=== PATIENT | female | born 1995 | race Caucasian/White ===

== ENCOUNTER → 2020-08-14 | Outpatient (CLI) | payer SELFPAY ==
[~2020-08-14] MED LIST: ACET1TAB55 PO; COLA100C5 PO; IBUP80TA PO; MULTTAB20 PO; OXYC-517 PO
== END ==
LOC: M LABSMTC 09:09
PROVIDERS: ATTEND Pediatrics
DX: Z20.822 Contact with and (suspected) exposure to COVID-19 (principal)

== ENCOUNTER 2020-12-09 07:08 | Inpatient (IN) | payer OTHER ==
[2020-12-09] VITALS (12 sets, daily range): BP systolic 107–156; BP diastolic 53–91
[~2020-12-09] VITALS: Ht 157.5 cm; Wt 112.9 kg
[2020-12-09] MEDS ORDERED: MULTTAB20 PO (07:28)
[2020-12-09] MEDS ORDERED: HOME MED LIST COMPLETE! XX SCH (07:30)
--- OUTSIDE RECORDS SUMMARY | 2020-12-09 08:33 | CCD | Continuity of Care Document ---
Author Author Chyna WALKER PA Organization Unknown Address [address], [place] [address] Phone [phone] Care Team Providers Care Pump And Still Operator Name Role Phone Jeni Schneider Educational Psychology Teacher AUTM [phone] Problems Active Problems Provider Date Heart murmur Jasmeet Ayala MD Onset: 06/23/2020 Social History Type Date Description Comments Sex Unknown ETOH Use Does not consume alcohol Tobacco Use Start: Unknown Patient has never smoked Smoking Status Reviewed: 06/23/20 Patient has never smoked Exercise Type/Frequency Does not exercise curren tly Exercise Limitations None Allergies, Adverse Reactions, Alerts Description No Known Drug Allergies Medications Active Medications SIG Qnty Indications Ordering Provide r Date 19 Tablets 1 by mouth every day Unknown 06/22/2020 Immunizations Description No Information Available Vital Signs Date Vital Result Comment 09/22/2020 8:04am Weight 225.00 lb Home Weight 224lb Height 62 inches 5'2" BMI (Body Mass Index) 41.1 kg/m2 BP Systolic Sitting 114 mmHg Ra, large cuff BP Diastolic Sitting 74 mmHg Ra, large cuff 06/23/2020 8:05am Weight 206.00 lb Home Weight 207lb home weight Height 62 inches 5'2" BMI (Body Mass Index) 37.7 kg/m2 Heart Rate 76 /min BP Systolic Sitting 110 mmHg Omron, large cuff/Ra BP Diastolic Sitting 66 mmHg Omron, large cuff/R a Results Test Acquired Date Facility Test Result H/L Range Note CBC without Differential 05/27/2020 [place], [place] [id number] [phone] White Blood Count 13.60 Red Blood Count 4.58 Platelets 272 Hemoglobin 12.7 Hematocrit 38.4 Procedures Date Code Description Status 09/22/2020 27757 Office/Outpatient Established Lo w MDM 20-29 Min Completed 08/26/2020 06684 Echocardiogram 2-D Doppler Color Completed 06/23/2020 92662 Office/Outpatient New Low MDM 30 -44 Minutes Completed 06/23/2020 59324 ECG 12-Lead Completed Medical Devices Description No Information Available Encounters Type Date Location Provider Dx Diagnosis Office Visit 09/22/2020 8:00a Main Office PETER Liriano R01 .1 Cardiac murmur, unspecified Office Visit 06/23/2020 8:00a Main Office Jasmeet Ayala MD R01.1 Cardiac murmur, unspecified Assessments Date Code Description Provider 09/22/2020 R01.1 Cardiac murmur, unspecified PETER Bishop 08/26/2020 R01.1 Cardiac murmur, unspecified ECHO 06/23/2020 R01.1 Cardiac murmur, unspecified [place] donta Ayala MD Plan of Treatment 09/22/2020 - PETER Liriano* R01.1 Cardiac murmur, unspecified* Recommendations:* No further evaluation is needed at this time * All * Follow up:* Follow up as needed Functional Status Functional Condition Comment Date Status Independent with all ADL's Activ e Mental Status Description No Information Available Referrals Description No Information Available
--- OUTSIDE RECORDS SUMMARY | 2020-12-09 08:34 | CCD | Continuity of Care Document ---
Author Author Chyna WALKER PA Organization Unknown Address [address], [place] [address] Phone [phone] Care Team Providers Care Traffic Engineering Director Name Role Phone Jeni Schneider Museum Preparator AUTM [phone] Problems Active Problems Provider Date Heart murmur [...] H/L Range Note CBC without Differential 05/27/2020 [place], [place] [id number] [phone] White Blood Count 13.60 Red Blood Count 4.58 Platelets 272 Hemoglobin 12.7 Hematocrit 38.4 Procedures Date Code Description Status 09/22/2020 17871 Office/Outpatient Established Lo w MDM 20-29 Min Completed 08/26/2020 56108 Echocardiogram 2-D Doppler Color Completed 06/23/2020 39665 Office/Outpatient New Low MDM 30 -44 Minutes Completed 06/23/2020 85702 ECG 12-Lead Completed Medical Devices Description No [...]
--- OUTSIDE RECORDS SUMMARY | 2020-12-09 08:34 | CCD ---
Author Author [facility] Organization [facility] Address Unknown Phone Unavailable Care Team Providers Care Director Reactor Projects Name Role Phone AARON, L LAURA PA Unavailable Unavailable AARON, L LAURA PA Unavailable Unavailable AARON, L LAURA PA Unavailable Unavailable AARON, L LAURA PA Unavailable Unavailable AARON, L LAURA PA Unavailable Unavailable AARON, L LAURA PA Unavailable Unavailable AARON, L LAURA PA Unavailable Unavailable AARON, L LAURA PA Unavailable Unavailable AARON, L LAURA PA Unavailable Unavailable AARON, L LAURA PA Unavailable Unavailable AARON, L LAURA PA Unavailable Unavailable AARON, L LAURA PA Unavailable Unavailable AARON, L LAURA PA Unavailable Unavailable AARON, L LAURA PA Unavailable Unavailable AARON, L LAURA PA Unavailable Unavailable AARON, L LAURA PA Unavailable Unavailable ANTECOL, Pau STONE MD Unavailable Unavailable ANTECOL, Pau STONE MD Unavailable Unavailable ANTECOL, Pau STONE MD Unavailable Unavailable ANTECOL, Pau STONE MD Unavailable Unavailable ANTECOLPau MD Unavailable Unavailable ANTECOL, Pau STONE MD Unavailable Unavailable ANTECOL, Pau STONE MD Unavailable Unavailable ANTECOL, Pau STONE MD Unavailable Unavailable ANTECOL, Pau STONE MD Unavailable Unavailable ANTECOL, Pau STONE MD Unavailable Unavailable ANTECOL, Pau STONE MD Unavailable Unavailable ANTECOL, Pau STONE MD Unavailable Unavailable ANTECOLPau MD Unavailable Unavailable ANTECOL, Pau STONE MD Unavailable Unavailable ANTECOL, Pau STONE MD Unavailable Unavailable ANTECOLPau MD Unavailable Unavailable ANTECOL, Pau STONE MD Unavailable Unavailable ANTECOL, Pau STONE MD Unavailable Unavailable ANTECOL, Pau STONE MD Unavailable Unavailable ANTECOL, Pau STONE MD Unavailable Unavailable ANTECOL, Pau STONE MD Unavailable Unavailable ANTECOL, Pau STONE MD Unavailable Unavailable ANTECOL, Pau STONE MD Unavailable Unavailable ANTECOL, Pau STONE MD Unavailable Unavailable ANTECOL, Pau STONE MD Unavailable Unavailable ANTECOL, Pau STONE MD Unavailable Unavailable ANTECOL, Pau STONE MD Unavailable Unavailable ANTECOL, Pau STONE MD Unavailable Unavailable ANTECOL, Pau STONE MD Unavailable Unavailable ANTECOL, Pau STONE MD Unavailable Unavailable ANTECOL, Pau STONE MD Unavailable Unavailable ANTECOL, aPu STONE MD Unavailable Unavailable ANTECOL, Pau STONE MD Unavailable Unavailable ANTECOL, Pau STONE MD Unavailable Unavailable ANTECOL, Pau STONE MD Unavailable Unavailable ANTECOL, Pau STONE MD Unavailable Unavailable ANTECOL, Pau STONE MD Unavailable Unavailable ANTECOL, Pau STONE MD Unavailable Unavailable ANTECOL, Pau STONE MD Unavailable Unavailable ANTECOL, Pau STONE MD Unavailable Unavailable ANTECOL, Pau STONE MD Unavailable Unavailable ANTECOL, Pau STONE MD Unavailable Unavailable ANTECOL, Pau STONE MD Unavailable Unavailable ANTECOL, Pau STONE MD Unavailable Unavailable ANTECOL, Pau STONE MD Unavailable Unavailable ANTECOL, Pau STONE MD Unavailable Unavailable ANTECOL, Pau STONE MD Unavailable Unavailable ANTECOL, Pau STONE MD Unavailable Unavailable ANTECOL, Pau STONE MD Unavailable Unavailable ANTECOL, Pau STONE MD Unavailable Unavailable ANTECOL, Pau STONE MD Unavailable Unavailable ANTECOL, Pau STONE MD Unavailable Unavailable ANTECOL, Pau STONE MD Unavailable Unavailable ANTECOL, Pau STONE MD Unavailable Unavailable JONESVISHNU Unavailable Unavailable Re-disclosure Warning The records that you are about to access may contain information from federally-assisted alcohol or drug abuse programs. If such information is present, then the following federally mandated warning applies: This information has been disclosed to you from records protected by federal confidentiality rules (42 CFR part 2). The federal rules prohibit you from making any further disclosure of this information unless further disclosure is expressly permitted by the written consent of the person to whom it pertains or as otherwise permitted by 42 CFR part 2. A general authorization for the release of medical or other information is NOT sufficient for this purpose. The Federal rules restrict any use of the information to criminally investigate or prosecute any alcohol or drug abuse patient.The records that you are about to access may contain highly sensitive health information, the redisclosure of which is protected by Article 27-F of the [place] State Public Health law. If you continue you may have access to information: Regarding HIV / AIDS; Provided by facilities licensed or operated by the [facility] Office of Mental Health; or Provided by the [facility] Office for People With Developmental Disabilities. If such information is present, then the following [facility] mandated warning applies: This information has been disclosed to you from confidential records which are protected by state law. State law prohibits you from making any further disclosure of this information without the specific written consent of the person to whom it pertains, or as otherwise permitted by law. Any unauthorized further disclosure in violation of state law may result in a fine or half-way sentence or both. A general authorization for the release of medical or other information is NOT sufficient authorization for further disc losure. Encounters Encounter Providers Location Date Indications Data Source(s ) Outpatient Attender: LAURA GREEN Main Office 09/22/2020 0 8:00:00 AM EDT [facility] ([facility]) Outpatient Attender: BERTHA MOULTON MD Main Office 06/23/2020 08:00:00 AM EDT [facility] ([facility]) Outpatient Attender: VISHNU JONES 06/14 06:00:00 PM EDT - 06/14/2020 07:00:00 PM EDT [facility] Patient discharged. Medications Medication Brand Name Start Date Product Form Dose Route Admi nistrative Instructions Pharmacy Instructions Status Indications Reaction Description Data Source(s) alpha-Tocopherol Acetate 30 UNT / Ascorb ic Acid 100 MG / Beta Carotene 1000 UNT / Calcium Carbonate 200 MG / Calcium Pantothenate 7 MG / Cholecalciferol 400 UNT / Docusate Sodium 25 MG / Ferrous fumarate 29 MG / Folic Acid 1 MG / Niacinamide 15 MG / Pyrid 19 06/22/2020 12:00:00 AM EDT ORAL active [facility] ([facility]) Insurance Providers Payer name Policy type / Coverage type Policy ID Covered green party ID Covered green party's relationship to yusuf Policy Yusuf Plan Information [facility] ACTIVE DUTY [id number] SP [id number] SELF PAY ONLY [id number] SP [id number] [facility] [id number] SP [id number] [facility] HUMANA - O/P [id number] Problems, Conditions, and Diagnoses Code Display Name Description Problem Type Effective Dates Data Source(s) Q24824 Pain in left ankle and joints of left fo ot Pain in left ankle and joints of left foot Diagnosis 06/14/2020 06:00:00 PM EDT [facility] J11190 Pain in right ankle and joints of right foot Pain in right ankle and joints of right foot Diagnosis 06/14/2020 06:00:00 PM EDT [facility] R01.1 Heart murmur Heart murmur Problem 06/23/2020 12:00:00 A M EDT [facility] ([facility]) Surgeries/Procedures Procedure Description Date Indications Data Source(s) OFFICE OUTPATIENT VISIT 15 MINUTES 09/22/2020 12:00:00 AM EDT [facility] ([facility]) ECHO TTHRC R-T 2D W/WOM-MODE COMPL SPEC&COLR DOP 08/26 12:00:00 AM EDT [facility] ([facility]) ECG ROUTINE ECG W/LEAST 12 LDS W/I&R 06/23/2020 12:00: 00 AM EDT [facility] ([facility]) OFFICE OUTPATIENT NEW 30 MINUTES 06/23/2020 12:00:00 A M EDT [facility] ([facility]) Results ID Date Data Source [id number] 10/15/2020 12:00:00 AM EDT [facility] Name Value Range Interpretation Code Description Data Conchita rce(s) Supporting Document(s) SARS-COV-2 Negative [facility] re [facility] ID Date Data Source [id number] 09/19/2020 02:30:00 PM EDT [facility] Name Value Range Interpretation Code Description Data Conchita rce(s) Supporting Document(s) SARS coronavirus 2 RNA [Presence] in Res piratory specimen by LATASHA with probe detection anterior nasal swabs [facility] This lab was ordered by [facility] and re ported by [employer]. ID Date Data Source [id number] 09/19/2020 10:30:00 AM EDT [facility] Name Value Range Interpretation Code Description Data Conchita rce(s) Supporting Document(s) SARS-CoV-2 NEGATIVE [facility] This lab was ordered by [facility] and reported by [facility]. ID Date Data Source [id number] 08/16/2020 01:14:00 PM EDT [facility] Name Value Range Interpretation Code Description Data Conchita rce(s) Supporting Document(s) SARS coronavirus 2 RNA Not Detected [facility] This lab was ordered by [facility] and reported by [facility]. ID Date Data Source [id number] 06/15/2020 10:18:00 AM EDT [facility] [address] [place] [address] PHONE: [phone] FAX: [phone] Name .................. : JUNIOR Flores Acct Number.................. : [id number] ROOM. ................. : Number ................... : [id number] Stay type ............. : O/P Discharge Date......... ... : 06/14/20 Admit Date ......... : 06/14/20 Admit Phys .................... : KAREN Ruiz Date of ....... : 1995 Family Phys ................... : UNKNOWN CO Phone .................. : [phone] Age ................................ : 24 Film# .................. .:[id number] Sex ................................. : F Unsigned transcriptions are preliminary reports and do not represent a medical or legal document MRI LOWER EXT ANY JT W/O CONT [id number] COMPLETE:06/14/20 18:54 KMB [id number] Reason for Exam: HEEL AND ANKLE PAIN, PT IS 14 WEEKS MRI OF THE LEFT ANKLE AND HEEL WITHOUT CONTRAST: INDICATION: Pain. FINDINGS: Multiple imaging of the left ankle submitted for evaluation. No abnormal osseous signal to indicate an acute injury. The plantar fascia is unremarkable. The Achilles tendon is unremarkable. The flexor and extensor tendons are unremarkable. The anterior and posterior talofibular ligaments are intact. No joint effusion. IMPRESSION: Unremarkable MRI of the left ankle and heel. No osseous or soft tissue abnormality. Electronically Reviewed and Signed By Haroon Cheng DO , 06/15/20 10:18, NAREN Transcribe Initials: JESUS , Transcribe Date: 06/15/20 01:48, Dictation Date: Copy for: KAREN MARES via fax Copy for: [address] [place] [address] REC Page 1 of 1 Name Value Range Interpretation Code Description Data Conchita rce(s) Supporting Document(s) ID Date Data Source [id number] 06/15/2020 10:18:[place] [address] PHONE: [phone] FAX: [phone] [facility] .................. [id number] ROOM. ................. : Number ................... : [id number] Stay type ............. : O/P Discharge Date......... ... : 06/14/20 Admit Date ......... : 06/14/20 Admit Phys .................... : KAREN Ruiz Date of ....... : 1995 Family Phys ................... : UNKNOWN CO Phone .................. : [phone] Age ................................ : 24 Film# .................. .:[id number] Sex ................................. : F Unsigned transcriptions are preliminary reports and do not represent a medical or legal document MRI LOWER EXT ANY JT W/O CONT [id number] COMPLETE:06/14/20 18:54 KMB [id number] Reason for Exam: HEEL AND ANKLE PAIN, PT IS 14 WEEKS MRI OF THE RIGHT ANKLE AND HEEL WITHOUT CONTRAST: INDICATION: Pain. FINDINGS: Multiple imaging of the right ankle submitted for evaluation. There is no evidence of any abnormal marrow signal to indicate an acute osseous injury. The plantar fascia is unremarkable. The Achilles tendon is unremarkable. No acute injury to the osseous structures identified. The anterior and posterior talofibular ligaments are intact. The extensor and flexor tendons are unremarkable around the ankle. IMPRESSION: Unremarkable MRI of the right ankle. There is no osseous or soft tissue abnormality identified. Electronically Reviewed and Signed By Haroon Cheng DO , 06/15/20 10:18, NAREN Transcribe Initials: JESUS , Transcribe Date: 06/15/20 01:46, Dictation Date: Copy for: KAREN MARES via fax Copy for: 710 MED REC Page 1 of 1 Name Value Range Interpretation Code Description Data Conchita rce(s) Supporting Document(s) ID Date Data Source [id number] 05/27/2020 04:41:00 PM EDT [facility] ([facility] Name Value Range Interpretation Code Description Data Conchita rce(s) Supporting Document(s) White Blood Count 13.60 [facility] ([facility]) Red Blood Count 4.58 [facility] ([facility] Platelets 272 [facility] Hematocrit 38.4 [facility] ([facility]) Hemoglobin 12.7 [facility] ([facility]) Procedure Social History Code Duration Value Status Description Data Source(s ) Smoking 06/23/2020 12:00:00 AM EDT Patient has never smoked co mpleted Patient has never smoked [facility] ([facility]) Vital Signs ID Date Data Source UNK Name Value Range Interpretation Code Description Data Source(s) Body weight 225.00 [lb_av] 225.00 [lb_av] [facility] ([facility]) Body height 62 [in_i] 62 [in_i] [facility] 5'2" Body mass index (BMI) [Ratio] 41.1 kg/m2 41.1 k g/m2 [facility] ([facility]) Systolic blood pressure--sitting 114 mm[Hg] 114 mm[Hg] [facility] ([facility]) Ra, large cuff Diastolic blood pressure--sitting 74 mm[Hg] 74 mm[Hg] [facility] ([facility]) Ra, large cuff Heart rate 76 /min 76 /min [facility] Body weight 206.00 [lb_av] 206.00 [lb_av] [facility] ([facility]) Body height 62 [in_i] 62 [in_i] [facility]) 5'2" Body mass index (BMI) [Ratio] 37.7 kg/m2 37.7 k g/m2 [facility] ([facility]) Systolic blood pressure--sitting 110 mm[Hg] 110 mm[Hg] [facility] ([facility]) Omron, large cuff/Ra Diastolic blood pressure--sitting 66 mm[Hg] 66 mm[Hg] [facility] ([facility]) Omron, large cuff/Ra
[2020-12-09 08:55] LABS: APPEARANCE, URINE CLOUDY (CLEAR); BACTERIA, URINE AUTO 1+ (NEGATIVE); BILIRUBIN, URINE AUTO NEGATIVE (NEGATIVE); BLOOD, URINE BLOOD 2+ (NEGATIVE); CALCIUM OXALATE CRYSTALS SMALL; COLOR, URINE YELLOW (YELLOW); GLUCOSE, URINE (UA) AUTO 1+ mg/dL (NEGATIVE); KETONE, URINE AUTO TRACE mg/dL (NEGATIVE); LEUKOCYTE ESTERASE, URINE AUTO NEGATIVE (NEGATIVE); MUCUS, URINE SMALL (NEGATIVE); NITRITE, URINE AUTO NEGATIVE (NEGATIVE); PROTEIN, URINE AUTO 2+ mg/dL (NEGATIVE); RBC, URINE AUTO 3 /HPF (0-3); SPECIFIC GRAVITY URINE AUTO 1.025 (1.002-1.035); SQUAMOUS EPITHELIAL CELL UR AU 22 /HPF (0-6); UROBILINOGEN, URINE AUTO 0.2 mg/dL (0.0-2.0); WBC, URINE AUTO 14 /HPF (0-3)
[2020-12-09] MEDS ORDERED: PENICILLIN G POTASSIUM IV 5 MU in D5W MINI-BAG PLUS 100 ML IV STA (09:16)
[2020-12-09] MEDS ORDERED: LR 1,000 ML IV SCH (09:20)
[2020-12-09] MEDS ORDERED: OXYTOCIN DRIP 30 UNITS in IV 1 EA IV PRN ×4 (09:20)
[2020-12-09 09:25] LABS: TOTAL PROTEIN,RANDOM URINE 85.3 MG/DL (0.0-12.0)
--- NOTE | 2020-12-09 09:45 | HPEPDOC ---
Obstetrical History & Physical General Date of Admission Dec 09, 2020 at 08:29 History of Present Illness 24yo G1 at 40+5 presenting for contractions, starting last night every 5 minutes and rated 6/10. Denies vaginal bleeding, loss of fluid. Endorses positive movement. Chief Complaint: Contractions, term Care Care: Good Care Dating Final EDC: Dec 04, 2020 Final EDC by: 1st trimester (US) LMP: Feb 22, 2020 1st Trimester Date: Apr 27, 2020 Antepartum Course Height (inches): 62 Pre- weight (lbs.): 175 Admission Weight (lbs.): 248 Change in Weight (lbs.): 73 Past Medical History Past Obstetrical History : Past Obstetrical History: Primgravida GR[employer]ITE F[employer]ICATOR History: No pertinent history Past Medical History Medical History migraines heart murmur, seen by cards, last echo . Per cards no further recs, murmur appears physiologic obesity Surgical History: Other (WTE, colonoscopy, toenail removal) Family History Family History mother: stroke maternal gm: heart attack maternal gf: heart attack paternal gm: crohn disease, colon cancer Social History Marital Status: Family situation: Spouse/partner home Psychosocial History: No pertinent psych hx * Smoker: non-smoker Alcohol: Denies Drugs: denies Abuse Violence Screening Have you been hit/kicked/slapp: No Have you been sexually assault: No Imunizations Tdap status: current Influenza Status: current Allergies Coded Allergies: No Known Allergies (Unverified , 12/09/20) Medications Scheduled No122/Iron/Folic Acid ( Multi Tablet) 1 Each Tablet, 1 TAB PO DAILY Physical Examination Physical Examination GENERAL: Alert and oriented times three. ABDOMEN: Gravid and non-tender to touch. FETUS: Is vertex (VTX) by sterile vaginal examination (SVE), fetus is vertex (VTX) by ultrasound HEART RATE: Regular rate LUNGS: nonlabored breathing EXTREMITIES: 2+ edema bilateral lower extremities Vital Signs/I&O Vital Signs Date Time Temp Pulse Resp B/P (MAP) Pulse Ox O2 Delivery O2 Flow Rate FiO2 12/09/20 08:11 86 140/89 (106) 12/09/20 07:32 97.5 17 Laboratory Data 24H LABS Laboratory Tests 2 12/09/20 08:34: Urine Color YELLOW, Urine Appearance CLOUDYH, Urine pH 6.0, Urine Specific [place] 1.025, Urine Protein 2+H, Urine Glucose (Auto)(UA) 1+H, Urine Ketones (Auto) TRACEH, Urine Blood 2+H, Urine Nitrite NEGATIVE, Urine Bilirubin NEGATIVE, Urine Urobilinogen 0.2, Urine Leukocyte Esterase (Auto) NEGATIVE, Urine WBC (Auto) 14H, Urine RBC (Auto) 3, Urine Hyaline Casts (Auto) 0, Urine Bacteria (Auto) 1+H, Urine Squamous Epithelial Cells 22, Urine Calcium Oxalate Cryst (Auto) SMALL, Urine Mucus (Auto) SMALL, Urine Sperm (Auto) , Urine Random Creatinine 224.0, Urine Random Total Protein 85.3H 12/09/20 09:07: Serology Scanned Report Hepatitis B Testing Pertinent Laboratoy Data Blood Type: O+ RBC Antibody Screen: Negative HIV: Negative Hepatitis B: Negative Rapid Plasma Reagin: Positive (1:1 titer) Rubella: Immune Varicella: Nonreactive (tpal non-reactive) Chlamydia/Gonorrhea: Negative Group B Streptococcus: Positive Glucose Tolerance Test: 121 Anatomy Ultrasound Ultrasound Date: Aug 12, 2020 Placenta Location: Anterior Normal Anatomy: Yes Placenta Previa: No Steroid Therapy Steroid Therapy: No Vaginal Examination Dilation: 1cm Effacement: 50% Station: -3 Presentation: Cephalic presentation Assessment Heart Rate (FHR): 140 Variability: Moderate Accelerations: Positive Decelerations: None Tocometer Contractions: Yes Frequency: regular, every 3-7 min. Multi-drug resistant Organism: No history of MDRO Assessment/Plan Assessment Mohsen Lowery is a 25yo G1 at 40+5 by first trimester ultrasound presenting for contractions. Found to have mild range blood pressure in triage qualifying for gestational hypertension. No signs/symptoms of preeclampsia. GBS positive, category I tracing. Cervix 1cm dilated. Offered admission for labor, and induction/slash augmentation if she stalls; explained that gestaional hypertension is an indication for delivery at this gestaional age; and she agreed. Plan Admit and orient. 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 Diet: regular Group B Streptococcus (GBS) positive, start PCN at rupture of membranes or 3cm cervical dilation. Labs and intravenous (IV) per unit protocol. Counseled on cytotec, valentine bulb, Pitocin, amniotomy and induction/augmentation of labor (IOL). Lactated Ringers (LR): 125 mL/hr. Anticipate [normal spontaneous delivery ()]. C-S as appropriate. Labor and Delivery Counseling I counseled her on the risks of vaginal delivery including but not limited to infection, bleeding. Described hemorrhage response in detail including need for blood transfusion and hysterectomy as life saving measures. Described cytotec/valentine bulb/oxytocin/amniotomy labor induction augmentation process and continuous monitoring. Described indications for delivery, forceps and vacuum deliveries. Risks of delivery including bleeding, infection, damage to nearby structures. Talked about shoulder dystocia and necessary measures including possible intentional breaking of clavicle or other bones to save the baby. She indicated understanding and all questions were an swered. PIERCE MOULTON DO Dec 09, 2020 09:45
[2020-12-09 09:53] LABS: HEMATOCRIT 38.8 % (36.0-47.0); HEMOGLOBIN 13.1 g/dl (12.0-15.5); MEAN CORPUSCULAR HEMOGLOBIN 27.9 pg (27.0-33.0); MEAN CORPUSCULAR HGB CONC 33.8 g/dl (32.0-36.5); MEAN CORPUSCULAR VOLUME 82.7 fl (80.0-96.0); PLATELET COUNT, AUTOMATED 244 10^3/uL (150-450); RED BLOOD COUNT 4.69 10^6/uL (4.00-5.40); WHITE BLOOD COUNT 11.8 10^3/uL (4.0-10.0)
[2020-12-09 10:25] LABS: ALT/SGPT 20 U/L (12-78); BILIRUBIN,TOTAL 0.2 MG/DL (0.2-1.0); CREATININE FOR GFR 0.75 MG/DL (0.55-1.30); GLOMERULAR FILTRATION RATE > 60.0 (>60); LDH LACTATE DEHYDROGENASE 190 U/L (84-246); URIC ACID 4.7 MG/DL (2.6-6.0)
[2020-12-09] MEDS ORDERED: PENICILLIN G POTASSIUM IV 2.5 MU in IV 1 EA IV SCH (13:20)
--- NOTE | 2020-12-09 14:11 | IPNPDOC ---
Obstetrical Progress Note Date of Service Dec 09, 2020 Subjective Mohsen Lowery is feeling well, she is aware of her contractions. Denies headaches, vision changes, shortness of breath, right upper quadrant pain. Objective Vital Signs Date Time Temp Pulse Resp B/P (MAP) Pulse Ox O2 Delivery O2 Flow Rate FiO2 12/09/20 11:38 61 16 107/53 (71) 12/09/20 07:32 97.5 Assessment Heart Rate (FHR): 140 Variability: Moderate Accelerations: Positive Decelerations: None Heart Rate Tracing: Category I Tocometer Contractions: Yes Frequency: regular (every 8 minutes) Sterile Vaginal Examination Dilation: 1cm Effacement (%): 50% Station: -3 Cervical Consistency: Medium Cervical Position: Posterior Postion/Presentation: Cephalic presentation Assessment and Plan Age: 25 : 1 Term: 0 Pre-term: 0 Abortions: 0 Livin Weeks & Days 40+5 Status: Reassuring Group B Streptococcus: Positive Anticipate: Vaginal Delivery Additional Comments Cervix unchanged from admission. Spot Pr/Cr from admission was 0.38; this gives diagnosis of preeclampsia without severe features; this does not environmental change analyst which is delivery. discussed with patient. Again reviewed methods of induction, I think valentine placement would not be tolerated by the patient so we will start with Cytotec 25mcg po q4h. routine intrapartum care, monitor for signs/symptoms of severe preeclampsia revaluate labor in 4-6 hours or sooner as needed PIERCE MOULTON DO Dec 09, 2020 14:11
[2020-12-09] MEDS: miSOPROStol 25MCG 1/4 TABLET PO SCH ×2 (14:33→18:38)
--- NOTE | 2020-12-09 18:24 | IPNPDOC ---
Obstetrical Progress Note Date of Service Dec 09, 2020 Subjective Mohsen Lowery was seen in her room and feels well. Is feeling the contractions. Denies headaches, vision changes, shortness of breath,right upper quadrant pain. Objective Vital Signs Date Time Temp Pulse Resp B/P (MAP) Pulse Ox O2 Delivery O2 Flow Rate FiO2 12/09/20 15:23 77 16 112/55 (74) 12/09/20 07:32 97.5 Assessment Heart Rate (FHR): 140 Variability: Moderate Accelerations: Positive Decelerations: None Heart Rate Tracing: Category I Tocometer Contractions: Yes Frequency: regular, every 3-7 min. Sterile Vaginal Examination Dilation: 1cm Effacement (%): 50% Station: -3 Cervical Consistency: Medium Cervical Position: Posterior Postion/Presentation: Cephalic presentation Assessment and Plan Age: 25 : 1 Term: 0 Pre-term: 0 Abortions: 0 Livin Weeks & Days 40+5 Status: Reassuring Group B Streptococcus: Positive Anticipate: Vaginal Delivery Additional Comments Will redose cytotec 25mcg by mouth and recheck cervix in about 4 hours. Contractions still pretty well spaced out. Discussed pain control plans and she would like an epidural at some point; not now of course. Hopefully at next check can place a valentine or will be 3cm so we could start pitocin. Will start PCN for GBS prophylaxis on rupture of membranes or 3cm cervical dilation Routine intrapartum care, monitor for signs/symptoms of preeclampsia. PIERCE MOULTON DO Dec 09, 2020 18:24
[2020-12-09] MEDS ORDERED: **PENDING PCN ENTRY XX SCH (21:00)
--- NOTE | 2020-12-09 22:47 | IPNPDOC ---
Obstetrical Progress Note Date of Service Dec 09, 2020 Subjective Mohsen Lowery is rating her cotraction pain now 8/10. Denies headaches, vision changes, shortness of breath, right upper quadrant pain. Objective Vital Signs Date Time Temp Pulse Resp B/P (MAP) Pulse Ox O2 Delivery O2 Flow Rate FiO2 12/09/20 18:37 68 16 148/89 (108) 12/09/20 18:08 97.8 Assessment Heart Rate (FHR): 140 Variability: Moderate Accelerations: Positive Decelerations: None Heart Rate Tracing: Category I Tocometer Contractions: Yes Frequency: every 3-7 min. Sterile Vaginal Examination Dilation: 3 cm Effacement (%): 50% Station: -3 Cervical Consistency: Medium Cervical Position: Middle Postion/Presentation: Cephalic presentation Assessment and Plan Age: 25 : 1 Term: 0 Pre-term: 0 Abortions: 0 Livin Weeks & Days 40+5 Status: Reassuring Group B Streptococcus: Positive Anticipate: Vaginal Delivery Additional Comments Cervical exam now 50/-3, will start pitocin and GBS prophylaxis. Discussed pain control options and she would like to try IV medications first, eventually epidural. -2mg stadol IV -12.5mg phenergan IV -pitocin per protocol -PCN for GBS prophylaxis -routine intrapartum care, monitor for signs/symptoms of worsening preeclampsia PIERCE MOULTON DO Dec 09, 2020 22:47
[2020-12-09] MEDS ORDERED: BUTORPHANOL 2 MG/ML INJ (J0595) IV ONE (22:50)
[2020-12-09] MEDS ORDERED: OXYTOCIN DRIP 30 UNITS in IV 1 EA IV SCH (22:50)
[2020-12-09] MEDS ORDERED: PROMETHAZINE INJ 25 MG/ML VIAL (J2550) IM ONE (22:50)
[2020-12-09] MEDS ORDERED: PROMETHAZINE INJ 25 MG/ML VIAL (J2550) IV ONE (23:40)
[2020-12-10] VITALS (36 sets, daily range): BP systolic 70–152; BP diastolic 41–98
[2020-12-10] MEDS ORDERED: PENICILLIN G POTASSIUM IV 5 MU in D5W MINI-BAG PLUS 100 ML IV STA (01:03)
[2020-12-10] MEDS ORDERED: FENTANYL 2MCG/ML ROPIVACAINE 0.2% IN 0.9% NACL 100ML IVBAG As Ordered ONE (02:20)
[2020-12-10] MEDS ORDERED: ePHEDrine SULFATE 25 MG/5 ML(5MG/ML) SYRINGE As Ordered ONE ×2 (03:10→03:40)
[2020-12-10] MEDS ORDERED: FENTANYL/ROPIVACAINE/NACL BAG 100 ML EPIDURAL SCH (03:50)
[2020-12-10] MEDS ORDERED: ePHEDrine SULFATE 25 MG/5 ML(5MG/ML) SYRINGE IV PRN (03:50)
[2020-12-10] MEDS ORDERED: NALOXONE INJ 0.4MG/1ML VIAL (J2310 PER 1MG) IV PRN ×3 (03:50→06:13)
[2020-12-10] MEDS ORDERED: REFRIGERATOR IV KEYS XX PRN (03:50)
[2020-12-10] MEDS ORDERED: ONDANSETRON 4MG/2ML VIAL IV PRN ×4 (03:50→07:35)
[2020-12-10] MEDS ORDERED: diphenhydrAMINE 50MG/ML VIAL (J1200) IV PRN (03:50)
[2020-12-10] MEDS ORDERED: LACTATED RINGER'S 1000 ML IV PRN (03:50)
[2020-12-10] MEDS ORDERED: EPIDURAL/PCA KEYS XX PRN (03:50)
[2020-12-10] MEDS ORDERED: EPIDURAL COMMENT XX SCH (03:50)
--- NOTE | 2020-12-10 04:48 | IPNPDOC ---
Obstetrical Progress Note Date of Service Dec 10, 2020 Subjective Was contacted by nursing for hypotension post-epidural to about 70/40. When I arrived at the bedside anesthesia was present administering ephedrine. The tracing was minimal variability with no accelerations and no decelerations, the pitocin had just been turned off. While on pitocin she would have several back to back contractions and then sometimes a ten minute period would elapse before [place] again. With position changes, ephedrine and turning off the pitocin the tracing regained moderate variability briefly as her blood pressures returned to the 140s. I discussed with her that if the tracing remains category 2 that she is remote from delivery and I would recommend delivery and she indicated understanding. Objective Vital Signs Date Time Temp Pulse Resp B/P (MAP) Pulse Ox O2 Delivery O2 Flow Rate FiO2 12/09/20 23:37 97.9 18 12/09/20 22:26 74 140/91 (107) Assessment Heart Rate (FHR): 150 Variability: Minimal to moderate Accelerations: None Decelerations: None Heart Rate Tracing: Category II Tocometer Contractions: Yes Frequency: regular, every 2-5 min. Sterile Vaginal Examination Dilation: 3 cm Effacement (%): 70% Station: -3 Cervical Consistency: Soft Cervical Position: Anterior Postion/Presentation: Cephalic presentation Assessment and Plan Age: 25 : 1 Term: 0 Pre-term: 0 Abortions: 0 Livin Weeks & Days 40+6 Group B Streptococcus: Positive Additional Comments After allowing time for the interventions to take effect, the tracing remained category II. I offered her delivery for nonreassuring heart rate tracing remote from delivery and she accepted. We reviewed the risks of including infection, bleeding, damage to nearby organs (bowel bladder ureters, and others) injury to baby, risks of anesthesia including and possibility of hysterectomy. She indicated understanding and all questions were answered. DO SAIGE Hawkins BRADLEY J. DO Dec 10, 2020 04:24
[2020-12-10] MEDS ORDERED: BICITRA 30ML SOLN UDC PO ONE (04:50)
[2020-12-10] MEDS ORDERED: AZITHROMYCIN INJ 500 MG, VIAL MATE ADAPTER 1 EACH in NS 250 ML IV ONE (04:50)
[2020-12-10] MEDS ORDERED: ceFAZolin SOD 2 GM in IV 1 EA IV ONE (04:50)
[2020-12-10] MEDS ORDERED: PENICILLIN G POTASSIUM IV 2.5 MU in IV 1 EA IV SCH (05:00)
[2020-12-10] MEDS ORDERED: OXYTOCIN INJ 10 UNITS/ML VIAL (J2590) As Ordered ONE (05:51)
[2020-12-10] MEDS ORDERED: LIDOCAINE 2% W/EPINEPHRINE 20ML VIAL **PRES FREE As Ordered ONE (05:51)
[2020-12-10] MEDS ORDERED: MORPHINE PRES-FREE INJ 10 MG/10 ML VIAL (J2274) As Ordered ONE (05:51)
[2020-12-10] MEDS ORDERED: NALBUPHINE HCL 10 MG/ML AMP (J2300) IV PRN (06:13)
[2020-12-10] MEDS ORDERED: METOCLOPRAMIDE INJ 10MG/2ML VIAL (J2765 PER 1) IV PRN (06:13)
[2020-12-10] MEDS ORDERED: LABETALOL 100MG/20ML VIAL As Ordered ONE (06:23)
[2020-12-10 06:30] LABS: CORD GAS ABE A -5.9; CORD GAS HCO3 A 20.4 MEQ/L; CORD GAS O2 SAT A 82.9 %; CORD GAS PCO2 A 43.1 mmHg; CORD GAS PH A 7.294 UNITS; CORD GAS PO2 A 40.2 mmHg; CORD GAS SBC A 19.4 MEQ/L; CORD GAS TCO2 A 21.8 MEQ/L
[2020-12-10 06:32] LABS: CORD GAS HCO3 V 26.8 MEQ/L; CORD GAS O2 SAT V 31.4 %; CORD GAS PCO2 V 66.5 mmHg; CORD GAS PH V 7.223 UNITS; CORD GAS PO2 V 17.5 mmHg; CORD GAS SBC V 20.2 MEQ/L; CORD GAS TCO2 V 28.8 MEQ/L
[2020-12-10] MEDS: LR 1,000 ML IV SCH ×3 (07:05→21:00)
[2020-12-10] MEDS ORDERED: MORPHINE 2 MG/ML 1ML VIAL (J2270) IV PRN (07:05)
[2020-12-10] MEDS ORDERED: SIMETHICONE 80MG CHEW TAB PO PRN (07:05)
[2020-12-10] MEDS ORDERED: RHOGAM 300 MCG (1500 IU) INJ (J2790) IM SCH (07:05)
[2020-12-10] MEDS: ACETAMINOPHEN 500 MG TAB PO SCH ×3 (07:05→18:30)
[2020-12-10] MEDS ORDERED: DOCUSATE SODIUM 100MG CAPSULE PO PRN (07:05)
[2020-12-10] MEDS ORDERED: oxyCODONE 5MG TAB PO PRN ×2 (07:05→07:35)
[2020-12-10] MEDS ORDERED: PROMETHAZINE 25 MG TAB PO PRN (07:05)
[2020-12-10] MEDS ORDERED: MEASLES,MUMPS,RUBELLA VACCINE INJ (MMR-II) (90707) SC SCH (07:05)
[2020-12-10] MEDS ORDERED: LR 1,000 ML IV SCH (07:35)
[2020-12-10] MEDS ORDERED: fentaNYL 100 MCG/2 ML INJECTION (J3010) As Ordered ONE (07:35)
[2020-12-10] MEDS: fentaNYL 100 MCG/2 ML INJECTION (J3010) IV PRN ×4 (07:36→08:45)
--- NOTE | 2020-12-10 07:36 | ROOPDOC ---
[facility] Report Of Operation Report of Operation DATE OF PROCEDURE: 12/10/20 PREPROCEDURE DIAGNOSES: 40 weeks gestation, preeclampsia without severe features, category 2 tracing remote from delivery. POSTPROCEDURE DIAGNOSES: same as above status post primary low transverse delivery. PROCEDURE PERFORMED: primary low transverse delivery SURGEON: Richard Peguero DO MEDICINE TECH: Trudi Rhodes MD whose assistance with retraction, visualization and delivery of the fetus was essential to completion of the case ANESTHESIA: epidural ESTIMATED BLOOD LOSS: Approximately 600 mL. COMPLICATIONS: none. REMARKS: none. FINDINGS: live female 8 pounds 2 ounces, 3690 grams. apgars 9/9. Normal appearing uterus, tubes and ovaries. SPECIMENS REMOVED: placenta PROCEDURE NOTE: see below. DESCRIPTION OF PROCEDURE: After obtaining informed consent the patient was brought to the operating suite and prepped/draped in the usual manner. A surgical timeout was called and the patient name, date of and procedure to be performed were verified. A transverse incision was made with the scalpel 2cm above the pubic symphysis and this was carried down to the level of the fascia. The fascia was scored with the scalpel and this was extended laterally with the mendes scissors. The fascia was dissected from the rectus muscles superiorly and inferiorly both sharply and bluntly. The rectus muscles were and the peritoneum was entered bluntly. The bladder blade was placed and the uterus was brought into view. A low transverse incision was made with the scalpel into the uterus and was then entered bluntly with clear fluid noted. The head was elevated to the level of the incision of with fundal pressure the head delivered atraumatically followed by the corpus without issue. The cord was clamped and cut and the handed off the field. The hysterotomy was closed in 2 layers with running 0-vicryl. The posterior culdesac was irrigated. The uterus was returned to the abdomen. The hysterotomy was inspected again and hemostasis with a small amount of oozing near the suture line. Arrista was placed with hemostasis noted. The peritoneum was closed with 2-0 vicryl. The fascia was closed with 0-vicryl in running fashion. The subcutaneous tissue was irrigated. The subcutaneous tissue was closed with 3-0 vicryl. The skin was closed with 4-0 monocryl. An Optifoam dressing was placed. All clots were removed from the vagina. Mohsen Lowrey was taken by anesthesia to the PACU in good condition. DO SAIGE Hawkins BRADLEY J. DO Dec 10, 2020 07:36
[2020-12-10] MEDS ORDERED: OXYTOCIN DRIP 30 UNITS in IV 1 EA IV ONE ×2 (07:45→08:55)
[2020-12-10] MEDS ORDERED: OXYTOCIN 30 UNITS IN 0.9% NaCl 500ML IV BAG (J2590) As Ordered ONE ×2 (07:50→08:59)
[2020-12-10] MEDS ORDERED: METHYLERGONOVINE MALEATE 0.2 MG/ML VIAL (J2210) IM ONE (08:30)
[2020-12-10] MEDS ORDERED: KETOROLAC 30 MG/ML 1ML VIAL As Ordered ONE (08:52)
[2020-12-10] MEDS: KETOROLAC 30 MG/ML 1ML VIAL IV SCH ×3 (08:56→20:26)
[2020-12-10] MEDS: PRENATAL VITAMINS CHEWABLE TABLET PO SCH (09:00)
--- NOTE | 2020-12-10 09:48 | IPNPDOC ---
Text Note Date of Service The patient was seen on 12/10/20. NOTE Bad tableBad table Item Value Date Time Creatinine 0.75 MG/DL 12/09/20 0940 Glomerular Filtration Rate > 60.0 12/09/20 0940 Uric Acid 4.7 MG/DL 12/09/20 0940 Total Bilirubin 0.2 MG/DL 12/09/20 0940 Aspartate Amino Transf (AST/SGOT) 19 U/L 12/09/20 0940 Alanine Aminotransferase (ALT/SGPT) 20 U/L 12/09/20 0940 Lactate Dehydrogenase 190 U/L 12/09/20 0940 Item Value Date Time White Blood Count 11.8 10^3/uL H 12/09/20 0940 Red Blood Count 4.69 10^6/uL 12/09/20 0940 Hemoglobin 13.1 g/dl 12/09/20 0940 Hematocrit 38.8 % 12/09/20 0940 Mean Corpuscular Volume 82.7 fl 12/09/20 0940 Mean Corpuscular Hemoglobin 27.9 pg 12/09/20 0940 Mean Corpuscular Hemoglobin Concent 33.8 g/dl 12/09/20 0940 Red Cell Distribution Width 14.1 % 12/09/20 0940 Platelet Count 244 10^3/uL 12/09/20 0940 12/10/2020 called x 2 re bleeding post op cs for failure to progress pre -e mild features. patient was at 40.5 with contractions and early labor had cs as described blood loss 600 ml, Aristo over hysterotomy scar IN RECOVERY UTERUS WITH FUNDAL PRESSURE CLOTS AND SOME FRESH BLEEDING. INITIATED METHERGINE SERIES, INCREASE PITOCIN MONITOR IN AND OUT WEIGHT AND MEASURE BLOOD LOSS INITIATE TYPE AND CROSS CONTINUE IN PACU. BP AND VITALS STABLE . PATIENT HAS SIGNIFICANT FOOT AND UP TO KNEE EDEMA VS,Fishbone, I+O VS, Fishbone, I+O Laboratory Tests 12/09/20 09:40 Vital Signs Date Time Temp Pulse Resp B/P (MAP) Pulse Ox O2 Delivery O2 Flow Rate FiO2 12/10/20 09:16 90 96 12/10/20 09:15 132/71 (91) 12/10/20 09:11 18 12/10/20 08:50 Room Air 12/10/20 07:55 98.7 Ron Marin MD Dec 10, 2020 09:41
[2020-12-10] MEDS: diphenhydrAMINE 50MG/ML VIAL (J1200) IV PRN ×2 (13:18→17:36)
[2020-12-10] MEDS: METHYLERGONOVINE MALEATE 0.2 MG TAB PO SCH ×2 (14:31→20:26)
[2020-12-10 15:12] LABS: HEMATOCRIT 29.9 % (36.0-47.0); MEAN CORPUSCULAR HEMOGLOBIN 28.2 pg (27.0-33.0); MEAN CORPUSCULAR HGB CONC 33.4 g/dl (32.0-36.5); MEAN CORPUSCULAR VOLUME 84.2 fl (80.0-96.0); PLATELET COUNT, AUTOMATED 194 10^3/uL (150-450); RED BLOOD COUNT 3.55 10^6/uL (4.00-5.40)
[2020-12-11] VITALS (7 sets, daily range): BP systolic 122–145; BP diastolic 68–90
[2020-12-11] MEDS: ACETAMINOPHEN 500 MG TAB PO SCH ×4 (00:25→18:15)
[2020-12-11] MEDS: KETOROLAC 30 MG/ML 1ML VIAL IV SCH (02:38)
[2020-12-11] MEDS: METHYLERGONOVINE MALEATE 0.2 MG TAB PO SCH ×2 (02:38→08:15)
[2020-12-11 06:27] LABS: HEMATOCRIT 31.5 % (36.0-47.0); HEMOGLOBIN 10.4 g/dl (12.0-15.5); MEAN CORPUSCULAR HEMOGLOBIN 27.8 pg (27.0-33.0); MEAN CORPUSCULAR VOLUME 84.2 fl (80.0-96.0); PLATELET COUNT, AUTOMATED 210 10^3/uL (150-450); RED BLOOD COUNT 3.74 10^6/uL (4.00-5.40); WHITE BLOOD COUNT 14.2 10^3/uL (4.0-10.0)
[2020-12-11] MEDS: PRENATAL VITAMINS CHEWABLE TABLET PO SCH (08:15)
--- NOTE | 2020-12-11 08:55 | IPN ---
PROGRESS NOTE DATE: 12/11/2020 SUBJECTIVE: Postoperative day one. This 25-year-old 1, now para 1 who was admitted at 40 and 5 with contractions and apparently history of preeclampsia without severe features. She had a primary section for category 2 tracing in remote from delivery. Female weighing 8 pounds 2 ounces (3690 grams). Apgars of 9 and 9 at one and five minutes respectively. Arterial pH was 7.29, base excess -5.9; venous pH 7.22, base excess -3.0. She had some atony in the PACU that continued on and was placed on a methergine series, continued with the Pitocin and eventually with vigorous massage and added Pitocin and methergine, the uterus finally contracted down with minimal amount of clots and minimal amount of bleeding. This morning, she complains that she is still passing clots, although physiologically it is normal having discussed it with the nurse it is within normal limits. Her admitting hemoglobin was 13.1, hematocrit was 38.8, and platelets were 244,000. Tracking her hemoglobin this morning, her hemoglobin is 10.4, hematocrit 31.5, and platelets are 210,000 indicating that she stabilized out. OBJECTIVE: Vital signs this morning her blood pressure is 142/90, respirations 16, pulse 169, temperature 98.0. She runs in the mid range blood pressures, but no evidence of severe range blood pressures. On examination this morning, she still seems to be quite edematous both in her lower extremities and her face. She is diuresing well at the present time. Uterus is 2 below. Lochia is moderate. Incision is clean and dry. The rest of the examination is unremarkable. Normocephalic, atraumatic. Neck with full range of motion. Pupils equal and reactive to light. Distal pulses are symmetric. No evidence of DVT, PE, or superficial phlebitis. Chest is clear bilaterally to the bases with no wheezes or rhonchi. No CVA tenderness. Abdomen is soft. Passing gas. No rashes, lesions, or pruritus. No arthralgias or myalgias. No complaint of joint pain. No complaint of cough, wheeze, shortness of breath, or dyspnea on exertion. No nausea, vomiting, diarrhea, or constipation. No urgency or frequency. ASSESSMENT/PLAN: In summary, we have a term gestation delivering a live female by primary section with preeclampsia nonsevere features.
[2020-12-11] MEDS: IBUPROFEN 800 MG TAB PO SCH ×2 (11:43→20:03)
[2020-12-11] MEDS ORDERED: IBUP80TA PO (16:36)
[2020-12-11] MEDS ORDERED: COLA100C5 PO (16:36)
[2020-12-11] MEDS ORDERED: OXYC-517 PO (16:36)
[2020-12-11] MEDS ORDERED: ACET1TAB55 PO (16:36)
[2020-12-11] MEDS: oxyCODONE 5MG TAB PO PRN (18:16)
[2020-12-12] MEDS: ACETAMINOPHEN 500 MG TAB PO SCH ×3 (01:05→12:40)
[2020-12-12 02:00] VITALS: BP 124/83
[2020-12-12] MEDS: IBUPROFEN 800 MG TAB PO SCH ×2 (04:04→12:40)
[2020-12-12 06:00] VITALS: BP 118/81
[2020-12-12] MEDS: oxyCODONE 5MG TAB PO PRN (07:23)
[2020-12-12] MEDS: PRENATAL VITAMINS CHEWABLE TABLET PO SCH (07:56)
[2020-12-12 17:50] VITALS: BP 122/74
== END 2020-12-12 18:50 | disposition home or self-care (01) | DRG 773 ==
LOC: M LDO 07:08 → M LDI 08:29 → M OBS 12-10 10:38
PROVIDERS: ADMIT Obstetrics & Gynecology; ATTEND Obstetrics & Gynecology
PROC: 10D00Z1 Extraction of Products of Conception, Low, Open Approach (ICD-10-PCS; principal; 2020-12-10 05:00)
DX: O48.0 Post-term pregnancy (principal); Z37.0 Single live birth; Z3A.40 40 weeks gestation of pregnancy; O13.4 Gestational [pregnancy-induced] hypertension without significant proteinuria, complicating childbirth; O99.824 Streptococcus B carrier state complicating childbirth; O76 Abnormality in fetal heart rate and rhythm complicating labor and delivery

== ENCOUNTER → 2021-05-30 | Outpatient (CLI) | payer OTHER | LOC: M LAB 13:20 | PROVIDERS: ATTEND Physician Assistant | DX: R06.00 Dyspnea, unspecified (principal) ==